=== PATIENT | male | born 1960 | race Two or more races ===

== ENCOUNTER 2020-03-12 14:05 | Outpatient (CLI) | payer OTHER ==
[2020-03-12 18:28] LABS: ALBUMIN 4.4 g/dL (3.2-5.5); BILIRUBIN,DIRECT 0.2 mg/dL (0.1-0.5); BILIRUBIN,TOTAL 1.8 mg/dL (0.2-1.0); TOTAL PROTEIN 7.8 g/dL (6.7-8.2)
== END 2020-03-12 23:59 | disposition home or self-care (01) ==
LOC: LAB.WCP 14:05
PROVIDERS: ATTEND Nurse Practitioner Family
DX: R17 Unspecified jaundice (principal)
CPT/HCPCS: 36415; 80076

== ENCOUNTER 2020-04-05 06:56 | Outpatient (CLI) | payer OTHER ==
--- NOTE | 2020-04-05 07:58 | Ultrasound Report ---
PROCEDURE: Abdomen Limited INDICATIONS: ELEVATED BILIRUBIN TECHNIQUE: Real-time scanning was performed of the abdominal and retroperitoneal organs, with image documentatio n. COMPARISON: None. FINDINGS: Liver: Liver is normal in size and homogeneous in echotexture. Gallbladder: The gallbladder appears normal without gallstones or gallbladder wall thickening. There is no pericholecystic fluid. Sonographic Walker sign is absent. Biliary ducts: Intrahepatic bile ducts are non-dilated. Extrahepatic bile duct caliber measures 3 m m. Normal is 6-7 mm or less in diameter, or 10 mm or less post-cholecystectomy. Pancreas: Visualized portions of the pancreas are sonographically normal. Right kidney: Kidney is normal in size and echotexture. Right kidney measures 10.8 cm long. No hyd ronephrosis or nephrolithiasis. No solid masses. IVC: Intrahepatic inferior vena cava is patent. Miscellaneous: No free right upper quadrant fluid. IMPRESSION: Normal appearance of the gallbladder. No biliary ductal dilatation is seen. Reviewed by: Saravanan Ward MD on 04/05/2020 7:56 AM PST Approved by: Saravanan Ward MD on 04/05/2020 7:56 AM PST Station ID: [id number]
== END 2020-04-05 06:57 | disposition home or self-care (01) ==
LOC: DI 06:56
PROVIDERS: ATTEND Nurse Practitioner Family
DX: R17 Unspecified jaundice (principal)
CPT/HCPCS: 76705

== ENCOUNTER 2020-08-01 06:35 | Day surgery (SDC) | payer OTHER ==
[2020-08-01] MEDS ORDERED: LACTATED RINGERS 1,000 ML IV ONE (07:13)
--- NOTE | 2020-08-01 07:43 | SURGERY HX AND PHYSICAL(T) ---
Surgical History & Physical - Chief Complaint/HPI Chief Complaint: High risk screening colonoscopy History of Present Illness: 59-year-old male presenting for high risk screening colonoscopy. Colorectal cancer in patient's father diagnosed at 70 as part of family history. Notable past surgical history to include none. Patient denies change in bowel function, denies bleeding per rectum, and also denies reflux associated symptoms. Patient does not use tobacco. Patient has a history of alcohol use but denies any associated abuse. No history of heart attack or stroke. Patient takes no systemic anticoagulation. Endoscopic history includes no prior screening endoscopy. - PMH/PSH/Social Hx Does the pt have a hx of MRSA?: No Eyes, Ears, Nose, Throat: None Cardiovascular: None Respiratory: None Skin: None Endocrine/Autoimmune: None Gastrointestinal: None Urinary: None Musculoskeletal: None Psychiatric: None - Home Meds and Allergies Allergies/Adverse Reactions: Allergies Allergy/AdvReac Type Severity Reaction Status Date / Time No Known Drug Allergies Allergy Verified 07/31/20 13:04 - Review of Systems Constitutional: Other (No significant complaints) - Vital Signs Heart Rate: 57 Blood Pressure: 119/80 Temperature: 36.3 C Respiratory Rate: 16 O2 Saturation: 99 Weight (kg): 72.5 kg Height: 1.65 m - Physical Exam General Appearance: positive: No acute distress Eyes Bilatera: positive: Normal inspection, PERRL, EOMI ENT: positive: ENT inspection nml Neck: positive: Nml inspection Respiratory: positive: Chest non-tender, No respiratory distress, Breath sounds nml. negative: Wheezes, Rales, Rhonchi Cardiovascular: positive: Regular rate & rhythm Abdomen: positive: Non-tender, No distention. negative: Tenderness, Guarding, Rebound Extremities: positive: Non-tender Neurologic/Psychiatric: positive: Oriented x3, CN's nml (2-12), Motor nml, Sensation nml, Mood/affect nml - Patient Review Patient Review: Problems were reviewed with the patient during this visit. Medications were reviewed with the patient during this visit. Allergies were reviewed this patient during this visit. Pertinent Tests Reviewed: All pertitent test for this patient were reviewed. - Assessment & Plan Assessment and Plan: Colonoscopy indicated for high risk screening colonoscopy; family history of colorectal cancer in his father. Symptoms are as follows none. Risks and benefits discussed at length. Informed consent obtained. Risks include but are not limited to, bleeding, infection, perforation, missed lesions, injury to local structures, need for further surgeries, and the periprocedural/sedation risks of heart attack stroke and . Patient was advised if any concerning areas were noted these would be sampled if too big to resect or performed for excision if within reasonable limits for endoscopic intervention. Please note that voice recognition software was used to transcribe this note and inadvertent errors might persist in spite of review and editing. I am obliged to you for your attention. I am thankful to you for allowing me to participate with you in this care of this patient.
[2020-08-01] MEDS ORDERED: MIDAZOLAM 2 MG/2 ML VIAL ONE ×2 (07:51→08:18)
[2020-08-01] MEDS ORDERED: fentaNYL 250 MCG/5 ML VIAL ONE (07:51)
[2020-08-01] MEDS ORDERED: LACTATED RINGERS 300 ML IV ONE (08:29)
[2020-08-01 09:01] VITALS: BP 109/80
== END 2020-08-01 06:36 | disposition home or self-care (01) ==
LOC: SDS 06:35
PROVIDERS: ATTEND Surgery
PROC: 0DBP8ZZ Excision of Rectum, Via Natural or Artificial Opening Endoscopic (ICD-10-PCS; principal; 2020-08-01 08:15)
DX: Z12.11 Encounter for screening for malignant neoplasm of colon (principal); K62.1 Rectal polyp; K57.30 Diverticulosis of large intestine without perforation or abscess without bleeding; K64.8 Other hemorrhoids; Z80.0 Family history of malignant neoplasm of digestive organs
CPT/HCPCS: 45380; J3010; J7120

== ENCOUNTER 2021-07-02 08:00 | Outpatient (CLI) | payer OTHER ==
--- NOTE | 2021-07-02 10:03 | XRAY Report ---
PROCEDURE: Knee 3 View LT INDICATIONS: SPRAIN OF UNSPEC SITE OF LEFT KNEE TECHNIQUE: 3 views of the left knee were acquired. COMPARISON: None. FINDINGS: Bones: No acute fractures or dislocations. No suspicious bony lesions. Mild narrowing of the media l femorotibial compartment joint space is seen. The lateral and anterior compartment joint spaces are maintained. Soft tissues: Small to moderate joint effusion. No suspicious soft tissue calcifications. IMPRESSION: 1.No acute osseous abnormality. If symptoms persist or there is continued clinical concern, further e valuation with MRI or CT may be helpful. 2.Mild medial compartment osteoarthrosis. 3.Small to moderate joint effusion. Reviewed by: Saravanan Ward MD on 07/02/2021 10:02 AM PST Approved by: Saravanan Ward MD on 07/02/2021 10:02 AM PST Station ID: [id number]
== END 2021-07-02 23:59 ==
LOC: DI.N 08:00
PROVIDERS: ATTEND Physician Assistant
DX: S83.92XA Sprain of unspecified site of left knee, initial encounter (principal); M17.12 Unilateral primary osteoarthritis, left knee; M25.462 Effusion, left knee